=== PATIENT | female | born 1980 | race Caucasian/White ===

== ENCOUNTER 2016-07-28 13:51 | Emergency (ER) | payer OTHER ==
--- NOTE | 2016-07-28 15:42 | ED CLINICAL REPORT ---
Clinical Report - Physicians/Mid Levels [facility] [address] [place] [address] 07/28/2016 13:52 Patient: AUGUSTA RICE Time Seen: 13:58 Jul 28 2016. Arrived- By private vehicle. Historian- patient. HISTORY OF PRESENT ILLNESS Chief Complaint: SKIN RASH. 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 It is described as painful. It has been located on the left lower extremity. (Reports pain, some chills/ fevers. Denies trauma. Has been ambulatory. Denies h/o dvt. pe. Denies MRSA exposure. Denies trauma. reports feeling mildly ill, flulike symptoms. Denies cough. Denies nausea or vomiting. Denies shortness of breath.). REVIEW OF SYSTEMS No fever, chills, difficulty breathing, lump in throat or eye irritation. No nausea or diarrhea. All systems otherwise negative, except as recorded above. PAST HISTORY Problems: Infections. Varicose veins of lower extremity. Additional Surgeries: Arthroscopy. . Medications: Vitamins Oral. [place] Thyroid Oral 135mg, daily. Allergies: Amoxicillin. Cipro. Codeine. morphine. Reglan. Relafen. SOCIAL HISTORY Current every day light tobacco smoker. Alcohol use. No drug use. ADDITIONAL NOTES The nursing notes have been reviewed. PHYSICAL EXAM Vital Signs: 07/28/2016 14:08 BP: 148/108. HR: 90. O2 saturation: 99%. Pain level now: 5/10. Appearance: Alert. No acute distress. ENT: Ears normal. Nose normal. Neck: Neck supple. CVS: Normal heart rate and rhythm. Respiratory: No respiratory distress. Breath sounds normal. Skin: Skin warm. Cellulitis (along calf varicose vein region, extending into knee area.). No abscess. LABS, X-RAYS, AND EKG Note - Tests: (US : Venous Left NEG). PROGRESS AND PROCEDURES Course of Care: Signs of thrombophlebitis to the left aspect with superficial cellulites in addition to such. Patient instructed to use warm packs, anti-inflammatories and elevate the leg and to follow up outpatient. No signs of DVT. Patient ambulatory. No suspicion for orthopedic injury. Afebirle, non septic appearing in er. 07/28/2016 15:48 BP: 134/98. HR: 80. RR: 16. O2 saturation: 99%. Temp: 98.1 F. Patient is stable. Symptoms better. Patient/family counseled. Disposition: Discharged. Condition: good. CLINICAL IMPRESSION Acute superficial thrombophlebitis of the left leg. Cellulitis of the left lower leg. INSTRUCTIONS (elevate leg warm packs take motrin/ tylenol follow up wound check in 2-3 days to ensure improvement). Prescription Medications: Bactrim DS 800 mg / 160 mg: take 1 tablet orally every 12 hours for 10 days. No refill. Substitution is permissible. Follow-up: Follow up with your doctor in three days for wound check. Understanding of the discharge instructions verbalized. (Electronically signed by Niurka Pedro P.A.-C 07/28/2016 16:00)
--- NOTE | 2016-07-28 15:42 | ED CLINICAL REPORT ---
Clinical Report - Physicians/Mid Levels [facility] [address] [place] [address] 07/28/2016 13:52 Patient: AUGUSTA RICE Time Seen: 13:58 Jul 28 2016. Arrived- By private vehicle. Historian- patient. HISTORY OF PRESENT ILLNESS Chief Complaint: SKIN RASH. 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 It is described as painful. It has been located on the left lower extremity. (Reports pain, some chills/ fevers. Denies trauma. Has been ambulatory. Denies h/o dvt. pe. Denies MRSA exposure. Denies trauma. reports feeling mildly ill, flulike symptoms. Denies cough. Denies nausea or vomiting. Denies shortness of breath.). REVIEW OF SYSTEMS No fever, chills, difficulty breathing, lump in throat or eye irritation. No nausea or diarrhea. All systems otherwise negative, except as recorded above. PAST HISTORY Problems: Infections. Varicose veins of lower extremity. Additional Surgeries: Arthroscopy. . Medications: Vitamins Oral. [place] Thyroid Oral 135mg, daily. Allergies: Amoxicillin. Cipro. Codeine. morphine. Reglan. Relafen. SOCIAL HISTORY Current every day light tobacco smoker. Alcohol use. No drug use. ADDITIONAL NOTES The nursing notes have been reviewed. PHYSICAL EXAM Vital Signs: 07/28/2016 14:08 BP: 148/108. HR: 90. O2 saturation: 99%. Pain level now: 5/10. Appearance: Alert. No acute distress. ENT: Ears normal. Nose normal. Neck: Neck supple. CVS: Normal heart rate and rhythm. Respiratory: No respiratory distress. Breath sounds normal. Skin: Skin warm. Cellulitis (along calf varicose vein region, extending into knee area.). No abscess. LABS, X-RAYS, AND EKG Note - Tests: (US : Venous Left NEG). PROGRESS AND PROCEDURES Course of Care: Signs of thrombophlebitis to the left aspect with superficial cellulites in addition to such. Patient instructed to use warm packs, anti-inflammatories and elevate the leg and to follow up outpatient. No signs of DVT. Patient ambulatory. No suspicion for orthopedic injury. Afebirle, non septic appearing in er. 07/28/2016 15:48 BP: 134/98. HR: 80. RR: 16. O2 saturation: 99%. Temp: 98.1 F. Patient is stable. Symptoms better. Patient/family counseled. Disposition: Discharged. Condition: good. CLINICAL IMPRESSION Acute superficial thrombophlebitis of the left leg. Cellulitis of the left lower leg. INSTRUCTIONS (elevate leg warm packs take motrin/ tylenol follow up wound check in 2-3 days to ensure improvement). Prescription Medications: Bactrim DS 800 mg / 160 mg: take 1 tablet orally every 12 hours for 10 days. No refill. Substitution is permissible. Follow-up: Follow up with your doctor in three days for wound check. Understanding of the discharge instructions verbalized. (Electronically signed by Niurka Pedro P.A.-C 07/28/2016 16:00)
--- NOTE | 2016-07-28 15:43 | ED ORDER SUMMARY ---
..... Patient: AUGUSTA RICE [facility] VisitID: [id number] [address] [place] [address] 35y, F Registration Date/Time: 07/28/2016 ORDER SHEET Weight: 113.3 kg (stated) Allergies: Amoxicillin, Reglan, Relafen, morphine, Codeine, Cipro GENERAL ORDERS: US Venous Left Urgent (14:11 07/28/2016 EKorolerain P.A.-C) ([facility] 14:12 Nhung) (15:48 Robi R.N.) MEDICATION ORDERS: Tylenol PO 650 mg (NOW) (14:53 07/28/2016 EKlalitalerain P.A.-C) (14:57 Adrian R.N.) Bactrim DS PO (Tablet 800-160 mg) 1 tab (NOW) (14:53 07/28/2016 EKlalitalerain P.A.-C) (14:57 Adrian R.N.) IV FLUIDS: ORDER SHEET NOTES: [Electronically signed by David Espinosa R.N. (15:51 07/28/2016)] [Electronically signed by Niurka PedroAMitch-C (16:00 07/28/2016)] [Electronically locked/signed by David Espinosa R.N. (15:51 07/28/2016)]
--- NOTE | 2016-07-28 15:43 | ED NURSING NOTES ---
Clinical Report - Nurses [place] [facility] [address] [place] [address] 07/28/2016 13:52 [id number] Triage time 14:Jul 28 2016. Acuity: LEVEL 4. Chief Complaint: LEFT LOWER EXTREMITY PAIN, SWELLING and REDNESS. ALBERTO COMA SCORE: Alberto Coma Scale: 15- eyes open spontaneously (4); best verbal response- oriented x 4 (5); best motor response- obeys commands (6). --14:14 Acacia Galvan R.N. 14:08 07/28/16. BP: 148/108. HR: 90. O2 saturation: 99%. Pain level now: 08/27. --14:14 Acacia Galvan R.N. 14:26 07/28/16. RR: 16. Temp: 97.8 F. --14:29 Acacia Galvan R.N. Weight: 113.3 kg stated. Height/Length: 65 inches Per Patient. BMI: 41.6. --14:08 Acacia Galvan R.N. Medications [place] Thyroid Oral 135mg, daily. --14:11 Acacia Galvan R.N. Vitamins Oral. --14:12 Acacia Galvan R.N. Allergies Amoxicillin. --14:15 Acacia Galvan R.N. Reglan. --14:15 Acacia Galvan R.N. Relafen. --14:15 Acacia Galvan R.N. morphine. --14:15 Acacia Galvan R.N. Codeine. --14:15 Acacia Galvan R.N. Cipro. --14:15 Acacia Galvan R.N. History Arrived by private vehicle. Historian: patient. Accompanied by family. No injury occurred. This occurred (about 3 days). She has had poor appetite and a headache. 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 PAST MEDICAL HX: No history of diabetes mellitus. No history of deep vein thrombosis or infections. Tetanus status: up-to-date. Immunizations: up-to-date. Last normal menstrual period now. Denies current . SOCIAL HX: Current every day light tobacco smoker (cigarette)- less than 1/2 a pack per day. Occasional alcohol use. No drug use. No infectious disease exposure. SELF HARM ASSESSMENT: A self harm assessment was performed. The patient answered "no" to the question "Do you have thoughts of harming or killing yourself?". FALL RISK ASSESSMENT: Fall risk assessment completed. No fall risk identified. NUTRITIONAL RISK ASSESSMENT: The nutritional risk assessment revealed no deficiencies. FUNCTIONAL ASSESSMENT: Functional assessment: no impairments noted. LEARNING NEEDS ASSESSMENT: The learning needs assessment revealed no barriers. ABUSE ASSESSMENT: Abuse assessment: The patient was asked "Do you feel safe in your home?". SKIN INTEGRITY ASSESSMENT: Skin integrity risk assessment completed. No skin integrity risk identified. --14:14 Acacia Galvan R.N. PAST MEDICAL HX: Infections (group B strep about 6 months ago). --14:16 Acacia Galvan R.N. PROBLEMS: Varicose veins of lower extremity. --14:13 Acacia Galvan R.N. ADDITIONAL SURGERIES: Arthroscopy. . --14:13 Acacia Galvan R.N. Interventions ID band on patient. To room. --14:14 Acacia Galvan R.N. PHYSICAL ASSESSMENT Ambulatory to room. GENERAL / NEURO / PSYCH: Oriented X 4. Alert. Appears in no acute distress. EXTREMITIES: Extremity pulses are within normal limits. Neuro-vascular status intact to the extremity. Left leg: tenderness, swelling and erythema. SKIN: Skin is warm and dry. --14:14 Acacia Galvan R.N. NURSING PROGRESS NOTES Neuro-vascular extremity check. Patient gowned. Patient identifiers checked. Call light placed in reach. Side rails up x 1. Bed placed in lowest position. Brakes of bed on. --14:16 Acacia Galvan R.N. 14:57 07/28/2016 Tylenol (Acetaminophen) PO Tablets 650 mg given. Allergies verified and confirmed 5 rights. --14:57 Acacia Galvan R.N. 14:57 07/28/2016 Bactrim DS (Sulfamethoxazole-TMP DS) PO Tablets 1 tab given. Allergies verified and confirmed 5 rights. --14:58 Acacia Galvan R.N. DISPOSITION / DISCHARGE 15:49 07/28/16. Condition at departure: improved. The goals identified in the patient's plan of care were met. No learning barriers present. Discharge instructions provided and reviewed with the patient and spouse. Reviewed warnings. Reviewed medication(s). Treatments reviewed. Patient and spouse verbalized understanding. Written instructions provided in Georgian. The patient was discharged by the physician players assistant. She was discharged home and accompanied by family. She left the Emergency Department ambulatory and via private vehicle. Family member driving. FALL RISK ASSESSMENT: Fall risk assessment completed. No fall risk identified. --15:49 David Espinosa R.N. 15:48 07/28/16. BP: 134/98. HR: 80. RR: 16. O2 saturation: 99% on room air. Temp: 98.1 F (oral). --15:49 David Espinosa R.N. 15:49 07/28/16. Departure time: 15:49. --15:49 David Espinosa R.N. Locked/Released at 07/28/2016 15:51 by David Espinosa R.N.
--- NOTE | 2016-07-28 15:43 | ED NURSING NOTES ---
Clinical Report - Nurses [place] [address] [place] [address] 07/28/2016 13:52 [id number] Triage time 14:Jul 28 2016. Acuity: LEVEL 4. Chief Complaint: LEFT LOWER EXTREMITY PAIN, SWELLING and REDNESS. ALBERTO COMA SCORE: Alberto Coma Scale: 15- eyes open spontaneously (4); best verbal response- oriented x 4 (5); best motor response- obeys commands (6). --14:14 Acacia Galvan R.N. 14:08 07/28/16. BP: 148/108. HR: 90. O2 saturation: 99%. Pain level now: 08/27. --14:14 Acacia Galvan R.N. 14:26 07/28/16. RR: 16. Temp: 97.8 F. --14:29 Acacia Galvan R.N. Weight: 113.3 kg stated. Height/Length: 65 inches Per Patient. BMI: 41.6. --14:08 Acacia Galvan R.N. Medications [place] Thyroid Oral 135mg, daily. --14:11 Acacia Galvan R.N. Vitamins Oral. --14:12 Acacia Galvan R.N. Allergies Amoxicillin. --14:15 Acacia Galvan R.N. Reglan. --14:15 Acacia Galvan R.N. Relafen. --14:15 Acacia Galvan R.N. morphine. --14:15 Acacia Galvan R.N. Codeine. --14:15 Acacia Galvan R.N. Cipro. --14:15 Acacia Galvan R.N. History Arrived by private vehicle. Historian: patient. Accompanied by family. No injury occurred. This occurred (about 3 days). She has had poor appetite and a headache. 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 PAST MEDICAL HX: No history of diabetes mellitus. No history of deep vein thrombosis or infections. Tetanus status: up-to-date. Immunizations: up-to-date. Last normal menstrual period now. Denies current . SOCIAL HX: Current every day light tobacco smoker (cigarette)- less than 1/2 a pack per day. Occasional alcohol use. No drug use. No infectious disease exposure. SELF HARM ASSESSMENT: A self harm assessment was performed. The patient answered "no" to the question "Do you have thoughts of harming or killing yourself?". FALL RISK ASSESSMENT: Fall risk assessment completed. No fall risk identified. NUTRITIONAL RISK ASSESSMENT: The nutritional risk assessment revealed no deficiencies. FUNCTIONAL ASSESSMENT: Functional assessment: no impairments noted. LEARNING NEEDS ASSESSMENT: The learning needs assessment revealed no barriers. ABUSE ASSESSMENT: Abuse assessment: The patient was asked "Do you feel safe in your home?". SKIN INTEGRITY ASSESSMENT: Skin integrity risk assessment completed. No skin integrity risk identified. --14:14 Acacia Galvan R.N. PAST MEDICAL HX: Infections (group B strep about 6 months ago). --14:16 Acacia Galvan R.N. PROBLEMS: Varicose veins of lower extremity. --14:13 Acacia Galvan R.N. ADDITIONAL SURGERIES: Arthroscopy. . --14:13 Acacia Galvan R.N. Interventions ID band on patient. To room. --14:14 Acacia Galvan R.N. PHYSICAL ASSESSMENT Ambulatory to room. GENERAL / NEURO / PSYCH: Oriented X 4. Alert. Appears in no acute distress. EXTREMITIES: Extremity pulses are within normal limits. Neuro-vascular status intact to the extremity. Left leg: tenderness, swelling and erythema. SKIN: Skin is warm and dry. --14:14 Acacia Galvan R.N. NURSING PROGRESS NOTES Neuro-vascular extremity check. Patient gowned. Patient identifiers checked. Call light placed in reach. Side rails up x 1. Bed placed in lowest position. Brakes of bed on. --14:16 Acacia Galvan R.N. 14:57 07/28/2016 Tylenol (Acetaminophen) PO Tablets 650 mg given. Allergies verified and confirmed 5 rights. --14:57 Acacia Galvan R.N. 14:57 07/28/2016 Bactrim DS (Sulfamethoxazole-TMP DS) PO Tablets 1 tab given. Allergies verified and confirmed 5 rights. --14:58 Acacia Galvan R.N. DISPOSITION / DISCHARGE 15:49 07/28/16. Condition at departure: improved. The goals identified in the patient's plan of care were met. No learning barriers present. Discharge instructions provided and reviewed with the patient and spouse. Reviewed warnings. Reviewed medication(s). Treatments reviewed. Patient and spouse verbalized understanding. Written instructions provided in Malay. The patient was discharged by the physician regulatory assistant. She was discharged home and accompanied by family. She left the Emergency Department ambulatory and via private vehicle. Family member driving. FALL RISK ASSESSMENT: Fall risk assessment completed. No fall risk identified. --15:49 David Espinosa R.N. 15:48 07/28/16. BP: 134/98. HR: 80. RR: 16. O2 saturation: 99% on room air. Temp: 98.1 F (oral). --15:49 David Espinosa R.N. 15:49 07/28/16. Departure time: 15:49. --15:49 David Espinosa R.N. Locked/Released at 07/28/2016 15:51 by David Espinosa R.N.
--- NOTE | 2016-07-28 15:43 | ED ORDER SUMMARY ---
..... Patient: AUGUSTA RICE OrderSheet [facility] VisitID: [id number] [address] [place] [address] 35y, F Registration Date/Time: 07/28/2016 ORDER SHEET Weight: 113.3 kg (stated) Allergies: Amoxicillin, Reglan, Relafen, morphine, Codeine, Cipro GENERAL ORDERS: US Venous Left Urgent (14:11 07/28/2016 EKorolerain P.A.-C) ([facility] 14:12 Nhung) (15:48 Robi R.N.) MEDICATION ORDERS: Tylenol PO 650 mg (NOW) (14:53 07/28/2016 EKlalitalerain P.A.-C) (14:57 Adrian R.N.) Bactrim DS PO (Tablet 800-160 mg) 1 tab (NOW) (14:53 07/28/2016 EKlalitalerain P.A.-C) (14:57 Adrian R.N.) IV FLUIDS: ORDER SHEET NOTES: [Electronically signed by David Espinosa R.N. (15:51 07/28/2016)] [Electronically signed by Niurka PedroAMitch-C (16:00 07/28/2016)] [Electronically locked/signed by David Espinosa R.N. (15:51 07/28/2016)]
--- NOTE | 2016-07-28 16:01 | ED MED RECONCILIATION SUMMARY ---
Patient: AUGUSTA RICE Medication Reconciliation Report [facility] VisitID: [id number] [address] [place] [address] 35y, F Registration Date/Time: 07/28/2016 Weight: 113.3 kg Height/Length: 65 in. BMI: 41.6 ALLERGIES: Amoxicillin, Cipro, Codeine, morphine, Reglan, Relafen The patient's Home Medications are listed below: THE FOLLOWING MEDICATIONS NEED TO BE RECONCILED: [place] Thyroid Oral 135mg, daily Vitamins Oral The source(s) of the original Home Medication information: Not obtained. The following Medications were given to the patient in the Emergency Department: Tylenol [PO] PO 650 mg, administered: 07/28/2016 2:57:00 PM Bactrim DS [PO] PO 1 tab, administered: 07/28/2016 2:57:00 PM The following Medications were prescribed to the patient: Bactrim DS 800 mg / 160 mg: take 1 tablet orally every 12 hours for 10 days. No refill. Substitution is permissible. -- Niurka Pedro P.A.-C
--- NOTE | 2016-07-28 16:01 | ED DISCHARGE INSTRUCTIONS ---
Patient: AUGUSTA RICE General Instructions [facility] VisitID: [id number] [place] [address] 35y, F Registration Date/Time: 07/28/2016 Acute superficial thrombophlebitis of the left leg. Cellulitis of the left lower leg. INSTRUCTIONS (elevate leg warm packs take motrin/ tylenol follow up wound check in 2-3 days to ensure improvement). Prescription Medications: Bactrim DS 800 mg / 160 mg: take 1 tablet orally every 12 hours for 10 days. No refill. Substitution is permissible. Follow-up: Follow up with your doctor in three days for wound check. Understanding of the discharge instructions verbalized. ADDITIONAL INFORMATION Cellulitis You have an infection of the skin known as cellulitis. This usually starts with a scrape, cut, insect bite, blister or other opening in the skin which becomes infected. This is a serious condition. It must be watched closely to be sure the infection is not spreading. With antibiotic treatment, the size of the red area will gradually shrink in size until the skin returns to normal. This will take 7-10 days. The red area should never increase in size once the antibiotic medicine has been started. Occasionally, an infection will be resistant to one antibiotic and another one will have to be used. Home Care: 1) Limit the use of the affected part, since excess movement can cause the infection to spread. 2) If the infection is on your leg, walk as little as possible during the first few days of the treatment. Keep your leg elevated while sitting. This will reduce swelling. 3) Take all of the antibiotic medicine exactly as directed until it is gone. Be careful not to miss any doses, especially during the first seven days. Follow Up with your doctor or this facility as directed. Check the infected area daily for the warning signs listed below. Get Prompt Medical Attention if any of the following occur: -- Spreading area of redness -- Increasing swelling or pain -- Appearance of pus or drainage -- Fever over 100.4 F (38.0 C) oral, or over 101.4 F (38.6 C) rectal, after two days on antibiotics Phlebitis, Superficial Phlebitis is the name for inflammation of a vein. This results in local redness, swelling, warmth and pain. This may occur after medicine has been given by vein as a result of the irritating effect of the medicine. It can also occur as a result of IV drug use. Superficial phlebitis involves only those veins close to the surface. There is no danger of a clot traveling to the lung or brain, unlike deep blood clots of the legs. Therefore, this condition can be safely treated at home. Home Care: Heat is helpful. Use a heating pad or soak the inflamed part in a hot tub for 10 minutes at a time. You may use ibuprofen (Motrin, Advil) to control pain, unless another medicine was prescribed. [ NOTE : If you have chronic kidney disease or ever had a stomach ulcer or GI bleeding, talk with your doctor before using these medicines.] If Your Leg Is Affected: Unless pain is severe, you may walk. It is important to sit often and elevate the leg. Avoid prolonged sitting or standing. Use support hose or an elastic wrap to compress the leg and reduce swelling. If Your Arm Is Affected: Elevate the arm. If you were given a sling, take your arm out from time to time and move it around to increase the circulation. Use an elastic wrap if there is a lot of swelling. Follow Up with your doctor as advised. Get Prompt Medical Attention if any of the following occur: Shortness of breath or painful breathing Chest pain or cough Fever of 100.4F (38C) or higher, or as directed by your healthcare provider Increasing swelling or pain Spreading redness Sulfamethoxazole, Trimethoprim Oral tablet What is this medicine? SULFAMETHOXAZOLE; TRIMETHOPRIM or SMX-TMP (suhl fuh meth OK merrick zohl; trye METH oh prim) is a combination of a sulfonamide antibiotic and a second antibiotic, trimethoprim. It is used to treat or prevent certain kinds of bacterial infections. It will not work for colds, flu, or other viral infections. How should I use this medicine? Take this medicine by mouth with a full glass of water. Follow the directions on the prescription label. Take your medicine at regular intervals. Do not take it more often than directed. Do not skip doses or stop your medicine early. Talk to your belt and link assembly supervisor regarding the use of this medicine in children. Special care may be needed. This medicine has been used in children as young as 2 months of age. What side effects may I notice from receiving this medicine? Side effects that you should report to your doctor or health healthcare customer service as soon as possible: allergic reactions like skin rash or hives, swelling of the face, lips, or tongue breathing problems fever or chills, sore throat irregular heartbeat, chest pain joint or muscle pain pain or difficulty passing urine red pinpoint spots on skin redness, blistering, peeling or loosening of the skin, including inside the mouth unusual bleeding or bruising unusually weak or tired yellowing of the eyes or skin Side effects that usually do not require medical attention (report to your doctor or health healthcare customer service if they continue or are bothersome): diarrhea dizziness headache loss of appetite nausea, vomiting nervousness What may interact with this medicine? Do not take this medicine with any of the following medications: aminobenzoate potassium dofetilide metronidazole This medicine may also interact with the following medications: NELLA inhibitors like benazepril, enalapril, lisinopril, and ramipril cyclosporine digoxin diuretics indomethacin medicines for diabetes methenamine methotrexate phenytoin potassium supplements pyrimethamine sulfinpyrazone tricyclic antidepressants warfarin What if I miss a dose? If you miss a dose, take it as soon as you can. If it is almost time for your next dose, take only that dose. Do not take double or extra doses. Where should I keep my medicine? Keep out of the reach of children. Store at room temperature between 20 to 25 degrees C (68 to 77 degrees F). Protect from light. Throw away any unused medicine after the expiration date. What should I tell my health care provider before I take this medicine? They need to know if you have any of these conditions: anemia asthma being treated with anticonvulsants if you frequently drink alcohol containing drinks kidney disease liver disease low level of folic acid or [id number] dehydrogenase poor nutrition or malabsorption porphyria severe allergies thyroid disorder an unusual or allergic reaction to sulfamethoxazole, trimethoprim, sulfa drugs, other medicines, foods, dyes, or preservatives or trying to get breast-feeding What should I watch for while using this medicine? Tell your doctor or health healthcare customer service if your symptoms do not improve. Drink several glasses of water a day to reduce the risk of kidney problems. Do not treat diarrhea with over the counter products. Contact your doctor if you have diarrhea that lasts more than 2 days or if it is severe and watery. This medicine can make you more sensitive to the sun. Keep out of the sun. If you cannot avoid being in the sun, wear protective clothing and use a sunscreen. Do not use sun lamps or tanning beds/booths. You have been given the following additional information: Cellulitis Thrombophlebitis, Superficial Sulfamethoxazole, Trimethoprim Oral tablet (Electronically signed by Niurka Pedro P.A.-C 07/28/2016 16:00)
--- NOTE | 2016-07-28 16:01 | ED MAR SUMMARY ---
..... Medication Administration Record [facility] [address] [place] [address] Patient: AUGUSTA RICE Visit ID: [id number] 35y, F Weight: 113.3 kg Height/Length: 65 in BMI: 41.6 ALLERGIES: Cipro, Codeine, morphine, Relafen, Reglan, Amoxicillin Given 14:07/28/2016 Acacia Galvan RRamos Medication Administered: TYLENOL [PO] (ACETAMINOPHEN), Dose: 650 mg Tablets PO. Medication Ordered: Tylenol PO 650 mg (NOW). Given 14:07/28/2016 Acacia Galvan, RMitchNMitch Medication Administered: BACTRIM DS [PO] (SULFAMETHOXAZOLE-TMP DS), Dose: 1 tab Tablets PO. Medication Ordered: Bactrim DS PO (Tablet 800-160 mg) 1 tab (NOW).
--- NOTE | 2016-07-28 16:01 | ED MED RECONCILIATION SUMMARY ---
Patient: AUGUSTA RICE Medication Reconciliation Report [facility] VisitID: [id number] [address] [place] [address] 35y, F Registration Date/Time: 07/28/2016 Weight: 113.3 kg Height/Length: 65 in. BMI: 41.6 ALLERGIES: Amoxicillin, Cipro, Codeine, morphine, Reglan, Relafen The patient's Home Medications are listed below: THE FOLLOWING MEDICATIONS NEED TO BE RECONCILED: [place] Thyroid Oral 135mg, daily Vitamins Oral The source(s) of the original Home Medication information: Not obtained. The following Medications were given to the patient in the Emergency Department: Tylenol [PO] PO 650 mg, administered: 07/28/2016 2:57:00 PM Bactrim DS [PO] PO 1 tab, administered: 07/28/2016 2:57:00 PM The following Medications were prescribed to the patient: Bactrim DS 800 mg / 160 mg: take 1 tablet orally every 12 hours for 10 days. No refill. Substitution is permissible. -- Niurka Pedro P.A.-C
--- NOTE | 2016-07-28 16:01 | ED DISCHARGE INSTRUCTIONS ---
Patient: AUGUSTA RICE General Instructions [facility] VisitID: [id number] [place] [address] 35y, F Registration Date/Time: 07/28/2016 Acute superficial thrombophlebitis of the left leg. Cellulitis of the left lower leg. INSTRUCTIONS (elevate leg warm packs take motrin/ tylenol follow up wound check in 2-3 days to ensure improvement). Prescription Medications: Bactrim DS 800 mg / 160 mg: take 1 tablet orally every 12 hours for 10 days. No refill. Substitution is permissible. Follow-up: Follow up with your doctor in three days for wound check. Understanding of the discharge instructions verbalized. ADDITIONAL INFORMATION Cellulitis You have an infection of the skin known as cellulitis. This usually starts with a scrape, cut, insect bite, blister or other opening in the skin which becomes infected. This is a serious condition. It must be watched closely to be sure the infection is not spreading. With antibiotic treatment, the size of the red area will gradually shrink in size until the skin returns to normal. This will take 7-10 days. The red area should never increase in size once the antibiotic medicine has been started. Occasionally, an infection will be resistant to one antibiotic and another one will have to be used. Home Care: 1) Limit the use of the affected part, since excess movement can cause the infection to spread. 2) If the infection is on your leg, walk as little as possible during the first few days of the treatment. Keep your leg elevated while sitting. This will reduce swelling. 3) Take all of the antibiotic medicine exactly as directed until it is gone. Be careful not to miss any doses, especially during the first seven days. Follow Up with your doctor or this facility as directed. Check the infected area daily for the warning signs listed below. Get Prompt Medical Attention if any of the following occur: -- Spreading area of redness -- Increasing swelling or pain -- Appearance of pus or drainage -- Fever over 100.4 F (38.0 C) oral, or over 101.4 F (38.6 C) rectal, after two days on antibiotics Phlebitis, Superficial Phlebitis is the name for inflammation of a vein. This results in local redness, swelling, warmth and pain. This may occur after medicine has been given by vein as a result of the irritating effect of the medicine. It can also occur as a result of IV drug use. Superficial phlebitis involves only those veins close to the surface. There is no danger of a clot traveling to the lung or brain, unlike deep blood clots of the legs. Therefore, this condition can be safely treated at home. Home Care: Heat is helpful. Use a heating pad or soak the inflamed part in a hot tub for 10 minutes at a time. You may use ibuprofen (Motrin, Advil) to control pain, unless another medicine was prescribed. [ NOTE : If you have chronic kidney disease or ever had a stomach ulcer or GI bleeding, talk with your doctor before using these medicines.] If Your Leg Is Affected: Unless pain is severe, you may walk. It is important to sit often and elevate the leg. Avoid prolonged sitting or standing. Use support hose or an elastic wrap to compress the leg and reduce swelling. If Your Arm Is Affected: Elevate the arm. If you were given a sling, take your arm out from time to time and move it around to increase the circulation. Use an elastic wrap if there is a lot of swelling. Follow Up with your doctor as advised. Get Prompt Medical Attention if any of the following occur: Shortness of breath or painful breathing Chest pain or cough Fever of 100.4F (38C) or higher, or as directed by your healthcare provider Increasing swelling or pain Spreading redness Sulfamethoxazole, Trimethoprim Oral tablet What is this medicine? SULFAMETHOXAZOLE; TRIMETHOPRIM or SMX-TMP (suhl fuh meth OK merrick zohl; trye METH oh prim) is a combination of a sulfonamide antibiotic and a second antibiotic, trimethoprim. It is used to treat or prevent certain kinds of bacterial infections. It will not work for colds, flu, or other viral infections. How should I use this medicine? Take this medicine by mouth with a full glass of water. Follow the directions on the prescription label. Take your medicine at regular intervals. Do not take it more often than directed. Do not skip doses or stop your medicine early. Talk to your interior design consultant regarding the use of this medicine in children. Special care may be needed. This medicine has been used in children as young as 2 months of age. What side effects may I notice from receiving this medicine? Side effects that you should report to your doctor or health care program resident as soon as possible: allergic reactions like skin rash or hives, swelling of the face, lips, or tongue breathing problems fever or chills, sore throat irregular heartbeat, chest pain joint or muscle pain pain or difficulty passing urine red pinpoint spots on skin redness, blistering, peeling or loosening of the skin, including inside the mouth unusual bleeding or bruising unusually weak or tired yellowing of the eyes or skin Side effects that usually do not require medical attention (report to your doctor or health care program resident if they continue or are bothersome): diarrhea dizziness headache loss of appetite nausea, vomiting nervousness What may interact with this medicine? Do not take this medicine with any of the following medications: aminobenzoate potassium dofetilide metronidazole This medicine may also interact with the following medications: NELLA inhibitors like benazepril, enalapril, lisinopril, and ramipril cyclosporine digoxin diuretics indomethacin medicines for diabetes methenamine methotrexate phenytoin potassium supplements pyrimethamine sulfinpyrazone tricyclic antidepressants warfarin What if I miss a dose? If you miss a dose, take it as soon as you can. If it is almost time for your next dose, take only that dose. Do not take double or extra doses. Where should I keep my medicine? Keep out of the reach of children. Store at room temperature between 20 to 25 degrees C (68 to 77 degrees F). Protect from light. Throw away any unused medicine after the expiration date. What should I tell my health care provider before I take this medicine? They need to know if you have any of these conditions: anemia asthma being treated with anticonvulsants if you frequently drink alcohol containing drinks kidney disease liver disease low level of folic acid or [id number] dehydrogenase poor nutrition or malabsorption porphyria severe allergies thyroid disorder an unusual or allergic reaction to sulfamethoxazole, trimethoprim, sulfa drugs, other medicines, foods, dyes, or preservatives or trying to get breast-feeding What should I watch for while using this medicine? Tell your doctor or health care program resident if your symptoms do not improve. Drink several glasses of water a day to reduce the risk of kidney problems. Do not treat diarrhea with over the counter products. Contact your doctor if you have diarrhea that lasts more than 2 days or if it is severe and watery. This medicine can make you more sensitive to the sun. Keep out of the sun. If you cannot avoid being in the sun, wear protective clothing and use a sunscreen. Do not use sun lamps or tanning beds/booths. You have been given the following additional information: Cellulitis Thrombophlebitis, Superficial Sulfamethoxazole, Trimethoprim Oral tablet (Electronically signed by Niurka Pedro P.A.-C 07/28/2016 16:00)
--- NOTE | 2016-07-28 16:01 | ED MAR SUMMARY ---
..... Medication Administration Record [facility] [address] [place] [address] Patient: AUGUSTA RICE Visit ID: [id number] 35y, F Weight: 113.3 kg Height/Length: 65 in BMI: 41.6 ALLERGIES: Cipro, Codeine, morphine, Relafen, Reglan, Amoxicillin Given 14:07/28/2016 Acacia Galvan RRamos Medication Administered: TYLENOL [PO] (ACETAMINOPHEN), Dose: 650 mg Tablets PO. Medication Ordered: Tylenol PO 650 mg (NOW). Given 14:07/28/2016 Acacia Galvan, RMitchNMitch Medication Administered: BACTRIM DS [PO] (SULFAMETHOXAZOLE-TMP DS), Dose: 1 tab Tablets PO. Medication Ordered: Bactrim DS PO (Tablet 800-160 mg) 1 tab (NOW).
--- NOTE | 2016-07-28 16:43 | DIAGNOSTIC IMAGING REPORT ---
PROCEDURE: US VENOUS - LEFT EXT INDICATION: SWELLING TECHNIQUE: Duplex sonography of the deep venous system in the left lower extremity was performed. Compression and augmentation techniques were used. COMPARISON: None. FINDINGS: Each interrogated segment of deep vein from the common femoral vein into the calf veins demonstrates normal compressibility, augmentation and/or color Doppler flow without filling defect. There is 25 cm segment of occlusive superficial phlebitis in the left distal five greater saphenous branch. In the left greater saphenous vein there was reflux of 6.6 mm over 2.8 seconds. IMPRESSION: 1. No deep venous thrombosis in the left lower extremity. 2. 25 cm segment of occlusive superficial thrombophlebitis in the left distal thigh greater saphenous vein branch Results were called to Willis in the emergency department at 04:40 p.m.
== END 2016-07-28 15:49 | disposition home or self-care (01) ==
LOC: ED SRH 13:51
DX: I80.02 Phlebitis and thrombophlebitis of superficial vessels of left lower extremity (principal); L03.116 Cellulitis of left lower limb; F17.210 Nicotine dependence, cigarettes, uncomplicated; Z79.899 Other long term (current) drug therapy; Z88.1 Allergy status to other antibiotic agents; Z88.5 Allergy status to narcotic agent; Z88.8 Allergy status to other drugs, medicaments and biological substances